=== PATIENT | male | born 1985 | race Caucasian/White ===

== ENCOUNTER 2017-05-27 19:14 | Emergency (ER) | payer OTHER ==
[2017-05-27 19:22] VITALS: BP 127/88
== END 2017-05-27 21:29 | disposition left against medical advice (07) ==
LOC: ED 19:14
DX: S61.210A Laceration without foreign body of right index finger without damage to nail, initial encounter (principal); W27.4XXA Contact with kitchen utensil, initial encounter; Z53.21 Procedure and treatment not carried out due to patient leaving prior to being seen by health care provider